=== PATIENT | female | born 1945 | race Caucasian/White ===

== ENCOUNTER 2022-06-02 19:41 | Emergency (ER) | payer OTHER ==
[~2022-06-02] VITALS: Wt 86.6 kg
[2022-06-02 19:52] VITALS: BP 130/60
[2022-06-02 20:20] LABS: BASO % 0.7 % (0.0-1.0); EOS # 0.1 10*3/uL (0.0-0.4); EOS % 2.2 % (1.0-4.0); HEMATOCRIT 35.9 % (37.0-47.0); LYMPH # 0.5 10*3/uL (1.3-4.4); LYMPH % 7.6 % (27.0-41.0); MEAN CORPUSCULAR HGB 30.8 pg (27.0-31.0); MEAN CORPUSCULAR HGB CONC 33.1 g/dl (33.0-37.0); MEAN PLATELET VOLUME 13.9 fl (9.6-12.3); MONO # 0.4 10*3/uL (0.1-1.0); MONO % 6.8 % (3.0-9.0); NEUT # 4.9 10*3/uL (2.3-7.9); NEUT % 82.4 % (47.0-73.0); PLATELET COUNT AUTOMATED 79 10*3/uL (130-400); RED BLOOD COUNT 3.86 10*6/uL (4.10-5.10); RED CELL DISTRI WIDTH 13.2 % (0-14.5); WHITE BLOOD COUNT 5.9 10*3/uL (4.8-10.8)
[2022-06-02 20:30] LABS: ACT PARTIAL THROMBO TIME 24.8 SECONDS (20.0-32.1); INTERNATIONAL NORM RATIO 1.1 (2.0-3.5)
[2022-06-02 20:35] LABS: ALKALINE PHOSPHATASE 109 U/L (46-116); BUN 58 mg/dl (9-23); CHLORIDE 107 mmol/L (98-107); CREATININE 3.41 mg/dL (0.55-1.02); POTASSIUM 4.5 mmol/L (3.4-5.1); SGPT/ALT < 7 U/L (10-49); SODIUM 139 mmol/L (136-145); TOTAL PROTEIN 6.3 gm/dL (6.0-8.0)
== END 2022-06-02 22:32 | disposition home or self-care (01) ==
LOC: ED 19:41
PROVIDERS: Emergency Medicine
DX: R07.89 Other chest pain (principal); Z91.041 Radiographic dye allergy status; Z91.018 Allergy to other foods; Z88.8 Allergy status to other drugs, medicaments and biological substances; Z98.51 Tubal ligation status; Z98.890 Other specified postprocedural states

== ENCOUNTER 2022-07-17 18:52 | Emergency (ER) | payer OTHER ==
[~2022-07-17] VITALS: Wt 5.7 kg
[~2022-07-17 18:52] MED LIST: ASPIRIN CHILDRE81 MG PO; ATENOLOL25 MG PO; ATORVASTATIN CA40 M1 PO; DHIVY 25-100 M1 EAC1 PO; DICYCLOMINE HYD20 MG PO; DULCOLAX10 M1 R; Humalog SQ; LANTUS SOL100 UNIT/1 SC; LEVETIRACETAM500 MG PO; LEVOFLOXACIN750 M2 PO; NITROFURANTOIN100 M9 PO; QUETIAPINE FUMA50 M1 PO; TYLENOL325 M2 PO; VITAMIN B121000 MC1 PO
[2022-07-17 19:02] VITALS: BP 108/45
[2022-07-17 19:26] LABS: BASO # 0.1 10*3/uL (0.0-0.1); BASO % 0.6 % (0.0-1.0); EOS # 0.3 10*3/uL (0.0-0.4); EOS % 3.8 % (1.0-4.0); HEMATOCRIT 34.1 % (37.0-47.0); LYMPH % 12.2 % (27.0-41.0); MEAN CELL VOLUME 94.7 fl (81.0-99.0); MEAN CORPUSCULAR HGB 30.6 pg (27.0-31.0); MEAN CORPUSCULAR HGB CONC 32.3 g/dl (33.0-37.0); MEAN PLATELET VOLUME 11.4 fl (9.6-12.3); MONO # 0.6 10*3/uL (0.1-1.0); MONO % 6.9 % (3.0-9.0); NEUT # 6.2 10*3/uL (2.3-7.9); PLATELET COUNT AUTOMATED 129 10*3/uL (130-400); RED CELL DISTRI WIDTH 13.2 % (0-14.5); WHITE BLOOD COUNT 8.1 10*3/uL (4.8-10.8)
[2022-07-17 19:45] LABS: ALKALINE PHOSPHATASE 104 U/L (46-116); BUN 26 mg/dl (9-23); CHLORIDE 101 mmol/L (98-107); TOTAL PROTEIN 6.3 gm/dL (6.0-8.0)
[2022-07-17 19:47] LABS: SGPT/ALT < 7 U/L (10-49)
[2022-07-17] MEDS ORDERED: Percocet 325 MG1 TAB PO (20:06)
== END 2022-07-17 20:31 ==
LOC: ED 18:52
PROVIDERS: Emergency Medicine
DX: R07.89 Other chest pain (principal); Z88.5 Allergy status to narcotic agent; Z98.51 Tubal ligation status; Z90.49 Acquired absence of other specified parts of digestive tract; Z98.890 Other specified postprocedural states

== ENCOUNTER → 2022-10-14 | Outpatient (CLI) | payer OTHER ==
[~2022-10-14] MED LIST changes: +Percocet 325 MG1 TAB PO
== END | disposition home or self-care (01) ==
LOC: CT 11:00
PROVIDERS: ATTEND Urology
DX: D17.71 Benign lipomatous neoplasm of kidney (principal); K80.20 Calculus of gallbladder without cholecystitis without obstruction; K57.32 Diverticulitis of large intestine without perforation or abscess without bleeding; N20.0 Calculus of kidney; N28.9 Disorder of kidney and ureter, unspecified

== ENCOUNTER 2022-11-12 23:41 | Emergency (ER) | payer OTHER ==
[~2022-11-12] VITALS: Wt 83.0 kg
[~2022-11-12 23:41] MED LIST changes: +FLEET ENEMA 13133 ML R; +IMDUR SA30 MG PO; +LEVOTHYROXINE125 MCG PO; +METOPROLOL SUCC25 M2 PO; +MILK OF MA400 MG/5 M PO; +MIRALAX17 GM PO; +NEURONTIN300 MG PO; +Ondansetron4 MG PO; +SINEMET 25-1001 EACH PO
[2022-11-13 00:26] LABS: BASO # 0.1 10*3/uL (0.0-0.1); BASO % 0.7 % (0.0-1.0); EOS # 0.2 10*3/uL (0.0-0.4); EOS % 2.9 % (1.0-4.0); HEMATOCRIT 31.2 % (37.0-47.0); LYMPH # 0.9 10*3/uL (1.3-4.4); MEAN CELL VOLUME 92.3 fl (81.0-99.0); MEAN CORPUSCULAR HGB CONC 31.4 g/dl (33.0-37.0); MEAN PLATELET VOLUME 10.9 fl (9.6-12.3); MONO # 0.5 10*3/uL (0.1-1.0); MONO % 7.2 % (3.0-9.0); NEUT # 5.3 10*3/uL (2.3-7.9); NEUT % 75.6 % (47.0-73.0); PLATELET COUNT AUTOMATED 127 10*3/uL (130-400); RED BLOOD COUNT 3.38 10*6/uL (4.10-5.10); RED CELL DISTRI WIDTH 13.2 % (0-14.5)
[2022-11-13 00:37] LABS: ACT PARTIAL THROMBO TIME 23.6 SECONDS (20.0-32.1)
[2022-11-13 00:48] LABS: ALKALINE PHOSPHATASE 113 U/L (46-116); BUN 20 mg/dl (9-23); CHLORIDE 104 mmol/L (98-107); POTASSIUM 3.6 mmol/L (3.4-5.1); TOTAL PROTEIN 6.1 gm/dL (6.0-8.0)
[2022-11-13 00:50] LABS: SGPT/ALT < 7 U/L (10-49)
[2022-11-13 03:56] LABS: BILIRUBIN Negative (Negative); BLOOD Negative (Negative); CLARITY Cloudy (Clear); COLOR Yellow (Yellow); GLUCOSE Trace (Negative); KETONE Negative (Negative); LEUKO ESTERASE 1+ (Negative); NITRITE Negative (Negative); PH 6.5 (4.5-8.0)
[2022-11-13 04:10] LABS: BACTERIA 4+; EPITHELIAL CELLS 21-30; WBC 16-20 wbc/hpf (0-5)
[2022-11-13 04:12] VITALS: BP 102/43
== END 2022-11-13 04:49 ==
LOC: ED 23:41
PROVIDERS: Emergency Medicine
DX: R07.89 Other chest pain (principal); I25.10 Atherosclerotic heart disease of native coronary artery without angina pectoris; E11.22 Type 2 diabetes mellitus with diabetic chronic kidney disease; I12.9 Hypertensive chronic kidney disease with stage 1 through stage 4 chronic kidney disease, or unspecified chronic kidney disease; N18.9 Chronic kidney disease, unspecified; J44.9 Chronic obstructive pulmonary disease, unspecified; Z88.5 Allergy status to narcotic agent; E11.65 Type 2 diabetes mellitus with hyperglycemia; E11.40 Type 2 diabetes mellitus with diabetic neuropathy, unspecified; D64.9 Anemia, unspecified; F31.9 Bipolar disorder, unspecified; Z98.51 Tubal ligation status; Z90.49 Acquired absence of other specified parts of digestive tract; Z79.899 Other long term (current) drug therapy

== ENCOUNTER → 2023-05-15 | Outpatient (CLI) | payer OTHER ==
[~2023-05-15] MED LIST changes: +CLOPIDOGREL75 MG PO; +CYCLOBENZAPRINE5 M3 PO; +ERTAPENEM1 GM IV; +ISOSORBIDE MON120 MG PO; +Imdur SA60 MG PO; +LEVETIRACE100 MG/1 M PO; +MELATONIN5 M1 PO; +MILK OF MA400 MG/52 PO; +MYLANTA MAXIMUM10 ML PO
== END | disposition home or self-care (01) ==
LOC: RAD 08:30
PROVIDERS: ATTEND Internal Medicine
DX: M85.852 Other specified disorders of bone density and structure, left thigh (principal); M81.0 Age-related osteoporosis without current pathological fracture; R26.2 Difficulty in walking, not elsewhere classified; I13.10 Hypertensive heart and chronic kidney disease without heart failure, with stage 1 through stage 4 chronic kidney disease, or unspecified chronic kidney disease; E11.22 Type 2 diabetes mellitus with diabetic chronic kidney disease; N18.9 Chronic kidney disease, unspecified; D63.1 Anemia in chronic kidney disease; K80.80 Other cholelithiasis without obstruction; K44.9 Diaphragmatic hernia without obstruction or gangrene; I25.10 Atherosclerotic heart disease of native coronary artery without angina pectoris; Z78.0 Asymptomatic menopausal state

== ENCOUNTER 2023-06-06 16:24 | Inpatient (IN) | payer OTHER ==
[~2023-06-06] VITALS: Ht 165.1 cm; Wt 79.8 kg
[~2023-06-06 16:24] MED LIST changes: +ASPIRIN81 M1 PO; +CARBIDOPA-LEVO1 EAC1 PO; +HUMALOG100 UNIT/2 SC; +KEPPRA500 MG PO; +LIPITOR40 MG PO; +MELATONIN5 M6 PO; +MILK OF MA400 MG/53 PO; +PLAVIX75 M1 PO; +RANOLAZINE ER500 MG PO; +TAMSULOSIN HCL0.4 MG PO; +TRAZODONE50 MG PO
[2023-06-06 16:30] VITALS: BP 139/54
[2023-06-07] VITALS: BP 138/66
== END 2023-06-07 03:46 | DRG 871 ==
LOC: ICCU 16:24
PROVIDERS: ADMIT Internal Medicine; ATTEND Internal Medicine
DX: A41.9 Sepsis, unspecified organism (principal); G93.41 Metabolic encephalopathy; J18.9 Pneumonia, unspecified organism; R65.21 Severe sepsis with septic shock; J96.01 Acute respiratory failure with hypoxia; E87.1 Hypo-osmolality and hyponatremia; N12 Tubulo-interstitial nephritis, not specified as acute or chronic; E87.20 Acidosis, unspecified; N13.6 Pyonephrosis; J44.0 Chronic obstructive pulmonary disease with (acute) lower respiratory infection; E05.90 Thyrotoxicosis, unspecified without thyrotoxic crisis or storm; D72.9 Disorder of white blood cells, unspecified; D64.9 Anemia, unspecified; R74.01 Elevation of levels of liver transaminase levels; I95.9 Hypotension, unspecified; I25.10 Atherosclerotic heart disease of native coronary artery without angina pectoris; E11.65 Type 2 diabetes mellitus with hyperglycemia; G20.B2 Parkinson's disease with dyskinesia, with fluctuations; F41.1 Generalized anxiety disorder; J44.9 Chronic obstructive pulmonary disease, unspecified; C73 Malignant neoplasm of thyroid gland; J45.20 Mild intermittent asthma, uncomplicated; E07.9 Disorder of thyroid, unspecified; G62.9 Polyneuropathy, unspecified; N18.31 Chronic kidney disease, stage 3a; Z51.5 Encounter for palliative care